=== PATIENT | male | born 1995 | race Caucasian/White ===

== ENCOUNTER → 2023-05-29 | Outpatient (CLI) | payer OTHER, SELFPAY ==
[2023-05-29 16:51] LABS: Absolute Lymphocyte Count 1.27 X10^3/uL (0.83-4.51); Absolute Neutrophil Count 3.3 X10^3/uL (2.0-7.7); Basophil# 0.04 X10^3/uL; Basophil% 0.7 % (0-1); Eosinophil# 0.08 X10^3/uL; Eosinophils% 1.5 % (0-5); Hematocrit 46.3 % (40-54); Hemoglobin 15.3 g/dL (13.0-16.5); Lymphocyte # 1.27 X10^3/ul (0.83-4.51); Lymphocyte % 23.4 % (19-41); Mean Corpuscular Hgb 28.9 pg (27.0-32.0); Mean Corpuscular Volume 87.5 fL (80-94); Monocyte# 0.67 X10^3/uL; Monocyte% 12.4 % (0-10); NRBC Flagged by Analyzer 0 % (0-5); Neutrophil # 3.34 X10^3/uL (2.7-7.7); Neutrophil % 61.6 % (47-70); Platelet Count 209 K/mm3 (150-450); RBC Distribution Width CV 12.4 % (11.6-14.6); RBC Distribution Width SD 39.8 fl (35.1-43.9); Red Blood Count 5.29 M/mm3 (4.6-6.2); White Blood Count 5.4 K/mm3 (4.4-11.0)
[2023-05-29 17:12] LABS: Vitamin B12 436 pg/mL (211-911); Vitamin D,25 Hydroxy 44.3 ng/mL
[2023-05-29 17:20] LABS: ALB/GLOB Ratio 1.2 RATIO (0.9-2.4); AST(SGOT) 37 U/L (15-37); Alanine Aminotransfer ALT/SGPT 58 U/L (16-61); Albumin, Serum 3.8 g/dL (3.2-5.0); Alkaline Phosphatase 57 U/L (45-117); Anion Gap 5 (5-15); BUN 8 mg/dL (7-18); BUN/Creat Ratio 8.2 RATIO (10-20); Calcium,Total 9.2 mg/dL (8.5-10.1); Chloride 108 mmol/L (98-107); Creatinine, Serum 0.98 mg/dL (0.70-1.30); EST Glomerular Filtration Rate 99 mL/min (>60); Est Glom Filt Rate - Afr Amer 120 mL/min (>60); Globulin 3.3 g/dL (2.2-4.2); Glucose 92 mg/dL (74-106); Potassium 4.1 mmol/L (3.5-5.1); Protein, Total 7.1 g/dL (6.4-8.2); Sodium Level 142 mmol/L (136-145); T4 Free Direct 1.26 ng/dL (0.76-1.46)
== END | disposition home or self-care (01) ==
LOC: BIMLAB 15:14
PROVIDERS: PCP Internal Medicine; Referring Provider Internal Medicine; Visit Provider Internal Medicine
DX: F41.9 Anxiety disorder, unspecified (principal); F32.A Depression, unspecified
CPT/HCPCS: 36415; 80053; 82306; 82607; 84439; 84443; 85025

== ENCOUNTER → 2024-04-29 | Outpatient (CLI) | payer OTHER, SELFPAY ==
[2024-04-29 12:02] LABS: Absolute Lymphocyte Count 1.58 X10^3/uL (0.83-4.51); Absolute Neutrophil Count 3.3 X10^3/uL (2.0-7.7); Basophil# 0.03 X10^3/uL; Basophil% 0.5 % (0-1); Eosinophil# 0.09 X10^3/uL; Eosinophils% 1.6 % (0-5); Hematocrit 46.4 % (40-54); Hemoglobin 15.3 g/dL (13.0-16.5); Lymphocyte # 1.58 X10^3/ul (0.83-4.51); Lymphocyte % 28.5 % (19-41); Mean Corpuscular Hgb 29.3 pg (27.0-32.0); Mean Corpuscular Volume 88.7 fL (80-94); Mean Platelet Vol. 10.8 fl (6.2-12.0); NRBC Flagged by Analyzer 0 % (0-5); Neutrophil # 3.33 X10^3/uL (2.7-7.7); Neutrophil % 60.2 % (47-70); Platelet Count 217 K/mm3 (150-450); RBC Distribution Width CV 12.2 % (11.6-14.6); Red Blood Count 5.23 M/mm3 (4.6-6.2); White Blood Count 5.5 K/mm3 (4.4-11.0)
[2024-04-29 12:35] LABS: ALB/GLOB Ratio 1.4 RATIO (0.9-2.4); AST(SGOT) 32 U/L (15-37); Alanine Aminotransfer ALT/SGPT 47 U/L (16-61); Albumin, Serum 4.2 g/dL (3.2-5.0); Alkaline Phosphatase 49 U/L (45-117); Anion Gap 5 (5-15); BUN 15 mg/dL (7-18); BUN/Creat Ratio 15.3 RATIO (10-20); Calcium,Total 9.8 mg/dL (8.5-10.1); Chloride 106 mmol/L (98-107); Cholesterol 150 mg/dL (200); Creatinine, Serum 0.98 mg/dL (0.70-1.30); EST Glomerular Filtration Rate 98 mL/min (>60); Est Glom Filt Rate - Afr Amer 118 mL/min (>60); Globulin 3.1 g/dL (2.2-4.2); Glucose 91 mg/dL (74-106); High Density Lipoprotein 50 mg/dL; Potassium 4.6 mmol/L (3.5-5.1); Protein, Total 7.3 g/dL (6.4-8.2); Sodium Level 139 mmol/L (136-145); Triglycerides 81 mg/dL; Very Low Density Lipoprotein 16 mg/dL (5-40)
== END | disposition home or self-care (01) ==
LOC: BIMLAB 10:21
PROVIDERS: PCP Internal Medicine; Referring Provider Internal Medicine; Visit Provider Internal Medicine
DX: Z00.00 Encounter for general adult medical examination without abnormal findings (principal)
CPT/HCPCS: 36415; 80053; 80061; 85025

== ENCOUNTER 2024-05-09 09:47 | Inpatient (IN) | payer OTHER, SELFPAY ==
[2024-05-09] VITALS (7 sets, daily range): BP systolic 128–170; BP diastolic 57–80; PULSE 52–81; RESP 14–18; TEMP 36.2–36.8; O2SAT 97–100; BMI 28.6; BMI 28.9
--- NOTE | 2024-05-09 10:27 | CT_ITS ---
STUDY: CT BRAIN WITHOUT CONTRAST REASON FOR EXAM: Male, 28 years old. Headache, fever, vomiting; zoster opthalmicus RADIATION DOSAGE (If Supplied By Facility): CTDIvol = ( 44.99 ) mGy, DLP = ( 812.98 ) mGycm TECHNIQUE: Transaxial CT imaging of the brain was performed without administration of intravenous contrast material. Individualized dose optimization techniques were used for this CT. COMPARISON: No relevant priors. FINDINGS: Normal soft tissue structures. Normal calvarium. Normal size ventricles and extra-axial spaces for the patient''s age. Normal white matter tracts of the cerebral hemispheres. Normal basal ganglia and thalami. Normal brainstem. Normal cerebellum. There is no intracranial hemorrhage. There are no findings of an acute ischemic infarction. Normal visualized paranasal sinuses. CT/Brain/Head without Contrast IMPRESSION: Normal unenhanced CT scan of the brain. Electronically Signed: Demond Valera MD at 13:01 EDT ,
--- NOTE | 2024-05-09 10:32 | EDS_ITS ---
HPI History of Present Illness Chief Complaint: Nausea/Vomiting Informant: patient and parent (x2) Narrative Narrative: 28-year-old male started having pain in the left face 1 week ago, he went to urgent care and was prescribed an antibiotic for sinus infection but the next day he started getting a rash in that area, he went to [facility] in [place] and was diagnosed with shingles. Since then it has involved his eye, his upper eyelid, he denies any trouble seeing but he does have a sensation that there is some discomfort in his eye itself, and discomfort behind his eye, he is having some congestion, and yesterday started having fevers and chills. He has been n auseated the entire time, vomiting, and despite being on medication for that since the rash started, Reglan, he continues to have this. He denies any neck stiffness, confusion, peripheral neurologic symptoms, diplopia. [facility] Medical History Preventative health care Dermatitis Diarrhea Encounter to establish care Anxiety and depression H/O scarlet fever H/O staphylococcal infection Home Medications ?Medication ?Instructions ?Recorded ?Last Taken ?Type escitalopram oxalate 10 mg tablet 10 mg PO DAILY #90 tabs 04/29/24 Unknown Rx (Lexapro) Allergy/AdvReac Type Severity Reaction Status Date / Time amoxicillin Allergy Rash Verified 05/09/24 09:48 sulfamethoxazole (From Allergy Unknown Verified 05/09/24 09:48 Bactrim) trimethoprim (From Bactrim) Allergy Unknown Verified 05/09/24 09:48 Social History Smoking Status: Never smoker alcohol intake: current alcohol intake frequency: a few times a month Alcohol type: hard liquor details: occassionally substance use type: does not use what type of physical activity do you participate in: weight training frequency: 3-4 times per week ROS ROS ED Constitutional Constitutional ED: Reports chills, fever(s) and subjective Eyes Eyes: Reports other Details: Left eye discomfort see HPI ; Denies change in vision or diplopia ENT ENT ED: Reports nasal discharge, rhinorrhea and other Details: Left facial pain and rash see HPI. No ear involvement at this time. ; Denies sore throat Cardiovascular Cardiovascular: Denies chest pain or palpitations Respiratory/Chest Respiratory/Chest: Denies cough or dyspnea Gastrointestinal Gastrointestinal: Reports nausea and vomiting; Denies abdominal pain or diarrhea Genitourinary Genitourinary ED: Denies dysuria or hematuria Musculoskeletal Musculoskeletal: Denies back pain or neck pain Integumentary Reports rash; Denies abscess Neurologic Neurologic: Reports headache(s); Denies paresthesias or weakness Psychiatric Psychiatric: Denies anxiety or suicidal thoughts EXAM Physical Exam Const Vital Signs: 05/09/24 09:48 05/09/24 11:48 Temperature 98 F Temperature Source Temporal Pulse Rate 52 L 81 Respiratory Rate 14 14 Blood Pressure 151/79 H 170/80 H Blood Pressure Mean 103 110 Pulse Ox 99 97 Oxygen Delivery Method Room Air Room Air Positive well nourished and well developed General Appearance ED: well developed and NAD HEENT Reports moist mucous membranes HEENT Narrative: Tender raised erythematous rash without vesicles, bullae, petechiae left upper face and scalp involving the left upper eyelid but not the rest of the periorbital area, it cuts off sharply at the midline it does not cross, and there is no external ear involvement. The EAC and TM are normal. No mastoid tenderness or involvement. normocephalic and atraumatic Eyes PERRL and EOMs intact bilaterally Eyes Narrative: There is scleral/conjunctival injection at the temporal aspect of the left eye, but grossly the eye is otherwise normal. There is no discharge. There is no other thymus or proptosis. Neck full ROM, no lymphadenopathy and supple Neck Narrative: Full range of motion without difficulty no meningismus Resp normal respiratory effort and clear to auscultation bilaterally Cardio regular rate, regular rhythm and no murmurs Back/Spine General Back: other FROM Extremity normal to inspection General Extremety ED: Negative for edema, pulses abnormal or tenderness General Extremity: Negative for edema or pulses abnormal Neuro oriented x3, CN's II-XII intact bilaterally and no sensory deficits noted Sensorium / Orientation: awake and alert Motor Exam: strength 5/5 throughout Psych mental status grossly normal Skin no wounds Skin Narrative: Facial rash see above nothing that appears fluid-filled. MDM MDM MDM Narrative Medical decision making narrative: Performed ophthalmologic slit-lamp exam left eye. With plain light there was a small piece of fuzz on the cornea that I wiped off with his lid, there is no dye uptake, and there is no dye uptake anywhere else or dendritic patterns in his eye. Tetracaine helped a little with his discomfort. Negative Lesia sign. Benign cornea. In order to rule out coexisting sinus involvement including sphenoid sinus, associated infection/abscess, or other acute inflammatory process, CT of the head was obtained, which includes the sinuses. I reviewed the images as well as the report, it is negative for any acute, and I agree with the report. As the patient and family are, I am concerned about the fact that he this appears to be straightforward zoster ophthalmicus, however his systemic symptoms are not classic for this especially without corneal involvement at this time. He also states that when he was at the hospital and diagnosed with this, they did a corneal stain and said that it looked normal at that time. He is not examining like meningitis or encephalopathy/encephalitis, but I talked to the patient and family and considering a lumbar puncture, and also discussed this with infectious disease. Dr. Bowles actually recommends not doing the LP, advising that the benefits do not outweigh the risks if we admit him with IV acyclovir 10 mg/kg every 8 hours, which is what he is recommended and he will consult. Lab Data Attestation: I reviewed the patient's lab results. Labs: Laboratory Results - last 24 hr 05/09/24 10:40 WBC 4.5 RBC 5.23 Hgb 15.5 Hct 44.6 MCV 85.3 MCH 29.6 MCHC 34.8 RDW Std Deviation 37.6 RDW Coeff of Chandni 12.1 Plt Count 156 MPV 9.7 Immature Gran % (Auto) 0.200 Neut % (Auto) 55.9 Lymph % (Auto) 21.7 [place] % (Auto) 20.8 H Eos % (Auto) 0.7 Baso % (Auto) 0.7 Absolute Neuts (auto) 2.5 Absolute Lymphs (auto) 0.98 Nucleated RBC % 0 Sodium 141 Potassium 4.0 Chloride 110 H Carbon Dioxide 25.0 Anion Gap 6 BUN 8 Creatinine 1.26 Estim Creat Clear Calc 103.62 Est GFR (MDRD) Af Amer 88 Est GFR (MDRD) Non-Af 73 BUN/Creatinine Ratio 6.3 L Glucose 93 Calcium 9.5 Management Discussion w/another healthcare provider: Hospitalist and Bag Loader (Infectious donald Bowles) Discharge Plan Triage Chief Complaint: Nausea/Vomiting ED Provider: Stanislav Martin Dx/Rx/DC Orders Clinical Impression: Herpes zoster ophthalmicus of left eye, Vomiting, Subjective fever Prescriptions: No Action escitalopram oxalate [Lexapro] 10 mg tablet 10 mg PO DAILY Qty: 90 0RF Primary Care Provider: Daiys Mendez Referrals: Daisy Mendez MD [Primary Care Provider] - Print Language: French Disposition Disposition: Acute Care [facility]
[2024-05-09 10:46] LABS: Absolute Lymphocyte Count 0.98 X10^3/uL (0.83-4.51); Absolute Neutrophil Count 2.5 X10^3/uL (2.0-7.7); Basophil# 0.03 X10^3/uL; Basophil% 0.7 % (0-1); Eosinophil# 0.03 X10^3/uL; Eosinophils% 0.7 % (0-5); Hematocrit 44.6 % (40-54); Hemoglobin 15.5 g/dL (13.0-16.5); Lymphocyte # 0.98 X10^3/ul (0.83-4.51); Lymphocyte % 21.7 % (19-41); Mean Corp Hgb Conc 34.8 g/dL (32-36); Mean Corpuscular Hgb 29.6 pg (27.0-32.0); Mean Corpuscular Volume 85.3 fL (80-94); Mean Platelet Vol. 9.7 fl (6.2-12.0); Monocyte# 0.94 X10^3/uL; Monocyte% 20.8 % (0-10); NRBC Flagged by Analyzer 0 % (0-5); Neutrophil # 2.52 X10^3/uL (2.7-7.7); Neutrophil % 55.9 % (47-70); Platelet Count 156 K/mm3 (150-450); RBC Distribution Width CV 12.1 % (11.6-14.6); RBC Distribution Width SD 37.6 fl (35.1-43.9); Red Blood Count 5.23 M/mm3 (4.6-6.2); White Blood Count 4.5 K/mm3 (4.4-11.0)
[2024-05-09] MEDS: Fluorescein 1 MG STRIP 1 STRIP LEFT EYE (10:50)
[2024-05-09] MEDS: Tetracaine 0.5% Ophthalmic Bottle 3 DRP LEFT EYE (10:51)
[2024-05-09] MEDS: Ondansetron 4 MG/2 ML Vial IV ×2 (10:52→17:57)
[2024-05-09] MEDS: 0.9% Normal Saline (1000mL) 1,000 ML 999 ML IV (10:52)
[2024-05-09 11:00] LABS: Anion Gap 6 (5-15); BUN 8 mg/dL (7-18); BUN/Creat Ratio 6.3 RATIO (10-20); Calcium,Total 9.5 mg/dL (8.5-10.1); Chloride 110 mmol/L (98-107); Creatinine, Serum 1.26 mg/dL (0.70-1.30); EST Glomerular Filtration Rate 73 mL/min (>60); Est Glom Filt Rate - Afr Amer 88 mL/min (>60); Estimated Creatinine Clearance 103.62 ml/min; Glucose 93 mg/dL (74-106); Sodium Level 141 mmol/L (136-145)
--- NOTE | 2024-05-09 12:15 | PCM.HP.STD ---
HPI - General General Date of Admission: 05/09/24 Date of Service: 05/09/24 HPI Narrative LEE MCDONALD, is a 28 M who presents with rash on the forehead. Patient symptoms started 5 days prior to his admission. He did experience what he described as sinus pressure. Was seen at an urgent care center prescribed antibiotics for possible sinusitis. He noticed a rash on the left frontal part of his face subsequently was seen at [facility] diagnosed with shingles prescribed acyclovir. Patient presented to the emergency department after developing intermittent chills. He also did complain of intractable nausea and vomiting. Was seen and evaluated in the emergency department patient did not exhibit any meningism. A slit eye examination did not reveal any dendritic ulcer. The infectious disease specialist on-call recommended admission for initiation of IV acyclovir [facility] Medical History Preventative health care Dermatitis Diarrhea Encounter to establish care Anxiety and depression H/O scarlet fever H/O staphylococcal infection Home Medications ?Medication ?Instructions ?Recorded ?Last Taken ?Type escitalopram oxalate 10 mg tablet 10 mg PO DAILY #90 tabs 04/29/24 05/06/24 Rx (Lexapro) metoclopramide HCl 10 mg tablet 10 mg PO Q6H PRN nausea and 05/09/24 Unknown History vomiting naproxen 500 mg tablet 500 mg PO BID PRN pain 05/09/24 05/09/24 History valacyclovir 1 gram tablet 1,000 mg PO TID 05/09/24 05/09/24 History Allergy/AdvReac Type Severity Reaction Status Date / Time amoxicillin Allergy Rash Verified 05/09/24 09:48 sulfamethoxazole (From Allergy Unknown Verified 05/09/24 09:48 Bactrim) trimethoprim (From Bactrim) Allergy Unknown Verified 05/09/24 09:48 Social History Smoking Status: Never smoker alcohol intake: current alcohol intake frequency: a few times a month Alcohol type: hard liquor details: occassionally substance use type: does not use what type of physical activity do you participate in: weight training frequency: 3-4 times per week ROS ROS Narrative GENERAL: Subjective fever and chills HEENT: headache, sinus congestion, RESPIRATORY: denies cough, sputum production, CARDIAC: denies chest pain, palpitations, orthopnea, PND GASTROINTESTINAL: nausea, vomiting, GENITOURINARY: denies dysuria, urgency, frequency, EXTREMITY: denies swelling MUSCULOSKELETAL: denies current joint pain or tenderness NEUROLOGIC: denies focal numbness, weakness, tingling HEMATOLOGIC: denies easy bruising and/or hemorrhage INTEGUMENT: denies rashes PSYCHIATRIC: denies suicidal or homicidal ideation Vital Signs Vital Signs Vital Signs: 05/09/24 09:48 05/09/24 11:48 Temperature 98 F Temperature Source Temporal Pulse Rate 52 L 81 Respiratory Rate 14 14 Blood Pressure 151/79 H 170/80 H Blood Pressure Mean 103 110 Pulse Ox 99 97 Oxygen Delivery Method Room Air Room Air Weight Weight: 93.2 kg Body Mass Index (BMI) 28.6 Physical Exam Narrative GENERAL: cooperative HEENT: An area of maculopapular erythematous rash involving the left frontal involving the left upper eye EYES; Anicteric, Normal Conjunctiva NECK; supple, normal thyroid, RESPIRATORY: Diminished to auscultation CARDIOVASCULAR: Regular S1 S2, GI: soft, normoactive bowel sounds, : No Renal angle tenderness; EXTREMITIES: No edema, no clubbing, MUSCULOSKELETAL: no muscle wasting NEURO: Awake; no lateralizing signs. SKIN: As discussed above PSYCH; Flat affect Results Lab / Micro Data 05/09/24 10:40 05/09/24 10:40 Labs: Laboratory Results - last 24 hr 05/09/24 10:40: WBC 4.5, RBC 5.23, Hgb 15.5, Hct 44.6, MCV 85.3, MCH 29.6, MCHC 34.8, RDW Std Deviation 37.6, RDW Coeff of Chandni 12.1, Plt Count 156, MPV 9.7, Immature Gran % (Auto) 0.200, Neut % (Auto) 55.9, Lymph % (Auto) 21.7, [place] % (Auto) 20.8 H, Eos % (Auto) 0.7, Baso % (Auto) 0.7, Absolute Neuts (auto) 2.5, Absolute Lymphs (auto) 0.98, Nucleated RBC % 0, Sodium 141, Potassium 4.0, Chloride 110 H, Carbon Dioxide 25.0, Anion Gap 6, BUN 8, Creatinine 1.26, Estim Creat Clear Calc 103.62, Est GFR (MDRD) Af Amer 88, Est GFR (MDRD) Non-Af 73, BUN/Creatinine Ratio 6.3 L, Glucose 93, Calcium 9.5 Assessment & Plan Assessment/Plan (1) Herpes zoster ophthalmicus of left eye: PLAN: Plan Patient is a 28-year-old gentleman presenting with a facial rash 1. Herpes zoster ophthalmicUS ? Patient has been admitted to regular nursing floor started on parenteral acyclovir per recommendations from infectious disease. Slight eye exam in the emergency department did not reveal any dendritic ulcers. As part of patient's evaluation ordered an HIV acid 2. Anxiety disorder ? Patient is on SSRI continue 3. Elevated blood pressure ? Patient is not a known hypertensive was placed on hydralazine as needed for systolic blood pressure greater than 160 4. Intractable nausea vomiting ? Treated symptomatically 5. Dehydration ? Secondary to patient intractable nausea vomiting patient be resuscitated with IV fluids with monitoring of his vitals 6. DVT prophylaxis ? Low risk with encouraging ambulation Charges/Coding Visit Charges Inpatient E&M: 80391 Init Hosp L2
[2024-05-09] MEDS: WATER IV ×2 (12:29→21:05)
[2024-05-09] MEDS: ACYCLOVIR IV ×2 (12:29→21:05)
[2024-05-09] MEDS: DEXTROSE 5% IV ×2 (12:29→21:05)
[2024-05-09 13:28] LABS: HIV - WCH Non-Reactive (Nonreactive)
--- NOTE | 2024-05-09 14:57 | CON.PCM.ID_ITS ---
Assessment & Plan Assessment/Plan (1) Herpes zoster ophthalmicus of left eye: PLAN: Will treat with acyclovir 10 mg/kg IV every 8 hours and follow clinically. Will repeat a BMP in the morning. HPI Consult Data Date of Consult: 05/09/24 HPI Narrative Reason for Consultation: Shingles involving the cranial nerves HPI Narrative: LEE MCDONALD, is a 28 M who presents no significant past medical history who presents with pain in his left side of his head and left retroorbital pain late last week and then rash that started on Monday in his left forehead and scalp. Also complaining of nausea vomiting. Low-grade fevers. No documented fever in the emergency department. HIV serology done on this admission negative. [facility] Medical History Preventative health care Dermatitis Diarrhea Encounter to establish care Anxiety and depression H/O scarlet fever H/O staphylococcal infection Home Medications ?Medication ?Instructions ?Recorded ?Last Taken ?Type escitalopram oxalate 10 mg tablet 10 mg PO DAILY #90 tabs 04/29/24 05/06/24 Rx (Lexapro) metoclopramide HCl 10 mg tablet 10 mg PO Q6H PRN nausea and 05/09/24 Unknown History vomiting naproxen 500 mg tablet 500 mg PO BID PRN pain 05/09/24 05/09/24 History valacyclovir 1 gram tablet 1,000 mg PO TID 05/09/24 05/09/24 History Allergy/AdvReac Type Severity Reaction Status Date / Time amoxicillin Allergy Rash Verified 05/09/24 09:48 sulfamethoxazole (From Allergy Unknown Verified 05/09/24 09:48 Bactrim) trimethoprim (From Bactrim) Allergy Unknown Verified 05/09/24 09:48 Social History Smoking Status: Never smoker alcohol intake: current alcohol intake frequency: a few times a month Alcohol type: hard liquor details: occassionally substance use type: does not use what type of physical activity do you participate in: weight training frequency: 3-4 times per week ROS ROS Narrative As stated in history of present illness others negative Physical Exam Narrative Alert responsive does not appear toxic left scalp and left forehead with vesicular lesions. Mild erythema on the upper left eyelid. Extraocular muscles are intact. Patient is neurologically intact. Neck is supple lungs are clear heart exam S1-S2 Lab / Micro Data 05/09/24 10:40 05/09/24 10:40 Labs: Laboratory Results - last 24 hr 05/09/24 10:40: WBC 4.5, RBC 5.23, Hgb 15.5, Hct 44.6, MCV 85.3, MCH 29.6, MCHC 34.8, RDW Std Deviation 37.6, RDW Coeff of Chandni 12.1, Plt Count 156, MPV 9.7, Immature Gran % (Auto) 0.200, Neut % (Auto) 55.9, Lymph % (Auto) 21.7, [place] % (Auto) 20.8 H, Eos % (Auto) 0.7, Baso % (Auto) 0.7, Absolute Neuts (auto) 2.5, Absolute Lymphs (auto) 0.98, Nucleated RBC % 0, Sodium 141, Potassium 4.0, C hloride 110 H, Carbon Dioxide 25.0, Anion Gap 6, BUN 8, Creatinine 1.26, Estim Creat Clear Calc 103.62, Est GFR (MDRD) Af Amer 88, Est GFR (MDRD) Non-Af 73, B UN/Creatinine Ratio 6.3 L, Glucose 93, Calcium 9.5 05/09/24 12:30: HIV 1&2 Antibody Non-Reactive Imaging Radiology Impression Brain CT 05/09/24 10:27 IMPRESSION: Normal unenhanced CT scan of the brain. Electronically Signed: Demond Valera MD at 13:01 EDT ,
[2024-05-09] MEDS: 0.9% Saline Lock 10 ML Syringe IV ×2 (17:57→20:24)
[2024-05-09] MEDS: Acetaminophen 325 MG Tablet 650 MG PO (20:28)
[2024-05-09] MEDS: proMETHazine 25 MG/ML Syringe IM (21:03)
[2024-05-10 03:00] VITALS: BP 126/83; PULSE 89; RESP 18; TEMP 36.3; O2SAT 99
[2024-05-10] MEDS: WATER IV ×3 (05:16→21:11)
[2024-05-10] MEDS: DEXTROSE 5% IV ×3 (05:16→21:11)
[2024-05-10] MEDS: ACYCLOVIR IV ×3 (05:16→21:11)
[2024-05-10 07:12] LABS: Absolute Lymphocyte Count 1.34 X10^3/uL (0.83-4.51); Absolute Neutrophil Count 2.8 X10^3/uL (2.0-7.7); Basophil# 0.05 X10^3/uL; Eosinophil# 0.05 X10^3/uL; Hematocrit 41.9 % (40-54); Hemoglobin 14.1 g/dL (13.0-16.5); Lymphocyte # 1.34 X10^3/ul (0.83-4.51); Mean Corp Hgb Conc 33.7 g/dL (32-36); Mean Corpuscular Hgb 28.9 pg (27.0-32.0); Mean Corpuscular Volume 85.9 fL (80-94); Mean Platelet Vol. 10.5 fl (6.2-12.0); Monocyte# 0.73 X10^3/uL; Monocyte% 14.7 % (0-10); NRBC Flagged by Analyzer 0 % (0-5); Neutrophil # 2.78 X10^3/uL (2.7-7.7); Neutrophil % 56.1 % (47-70); Platelet Count 143 K/mm3 (150-450); RBC Distribution Width CV 12.3 % (11.6-14.6); RBC Distribution Width SD 38.6 fl (35.1-43.9); Red Blood Count 4.88 M/mm3 (4.6-6.2)
--- NOTE | 2024-05-10 07:21 | PN.HOSP_ITS ---
Reason for Visit Reason for Visit: Diagnoses Zoster ocular disease, unspecified (05/09/24) Subjective Subjective Patient did complains of some visual disturbance but the blurriness has improved this a.m. Objective Data Objective Data Vital Signs: Vital Signs Temp Pulse Resp BP Pulse Ox O2 Del Method 97.4 F L 89 18 126/83 H 99 Room Air 05/10/24 03:00 05/10/24 03:00 05/10/24 03:00 05/10/24 03:00 05/10/24 03:00 05/10/24 03:00 Oxygen Delivery Method Room Air Weight: 94 kg Body Mass Index (BMI) 28.9 Intake & Output: Intake and Output for Last 24 Hours 05/08/24 05/09/24 05/10/24 23:59 23:59 23:59 Intake Total 2235.0 / 2235.0 400 / 400 Balance 2235.0 / 2235.0 400 / 400 Lab / Micro Data 05/10/24 06:47 05/10/24 06:47 Labs: Laboratory Results - last 24 hr 05/09/24 10:40: WBC 4.5, RBC 5.23, Hgb 15.5, Hct 44.6, MCV 85.3, MCH 29.6, MCHC 34.8, RDW Std Deviation 37.6, RDW Coeff of Chandni 12.1, Plt Count 156, MPV 9.7, Immature Gran % (Auto) 0.200, Neut % (Auto) 55.9, Lymph % (Auto) 21.7, [place] % (Auto) 20.8 H, Eos % (Auto) 0.7, Baso % (Auto) 0.7, Absolute Neuts (auto) 2.5, Absolute Lymphs (auto) 0.98, Nucleated RBC % 0, Sodium 141, Potassium 4.0, C hloride 110 H, Carbon Dioxide 25.0, Anion Gap 6, BUN 8, Creatinine 1.26, Estim Creat Clear Calc 103.62, Est GFR (MDRD) Af Amer 88, Est GFR (MDRD) Non-Af 73, B UN/Creatinine Ratio 6.3 L, Glucose 93, Calcium 9.5 05/09/24 12:30: HIV 1&2 Antibody Non-Reactive 05/10/24 06:47: WBC 5.0, RBC 4.88, Hgb 14.1, Hct 41.9, MCV 85.9, MCH 28.9, MCHC 33.7, RDW Std Deviation 38.6, RDW Coeff of Chandni 12.3, Plt Count 143 L, MPV 10.5, Immature Gran % (Auto) 0.200, Neut % (Auto) 56.1, Lymph % (Auto) 27.0, [place] % (Auto) 14.7 H, Eos % (Auto) 1.0, Baso % (Auto) 1.0, Absolute Neuts (auto) 2.8, Absolute Lymphs (auto) 1.34, Nucleated RBC % 0 Radiography Diagnostic Testing: Radiology Impression Brain CT 05/09/24 10:27 IMPRESSION: Normal unenhanced CT scan of the brain. Electronically Signed: Demond Valera MD at 13:01 EDT , Physical Exam Narrative GENERAL: cooperative HEENT: An area of maculopapular erythematous rash involving the left frontal involving the left upper eye EYES; Anicteric, Normal Conjunctiva NECK; supple, normal thyroid, RESPIRATORY: Diminished to auscultation CARDIOVASCULAR: Regular S1 S2, GI: soft, normoactive bowel sounds, : No Renal angle tenderness; EXTREMITIES: No edema, no clubbing, MUSCULOSKELETAL: no muscle wasting NEURO: Awake; no lateralizing signs. SKIN: As discussed above PSYCH; Flat affect Assessment & Plan Assessment/Plan (1) Herpes zoster ophthalmicus of left eye: PLAN: Plan Patient is a 28-year-old gentleman presenting with a facial rash 1. Herpes zoster ophthalmicus ? Patient has been admitted to regular nursing floor started on parenteral acyclovir per recommendations from infectious disease. Slight eye exam in the emergency department did not reveal any dendritic ulcers. As part of patient's evaluation ordered an HIV assay ? 05/10/2024; HIV assay came back negative. Patient had complained of some visual disturbance which has improved because of this they are 2. Anxiety disorder ? Patient is on SSRI continue 3. Elevated blood pressure ? Patient is not a known hypertensive was placed on hydralazine as needed for systolic blood pressure greater than 160 4. Intractable nausea vomiting ? Treated symptomatically 5. Dehydration ? Secondary to patient intractable nausea vomiting patient be resuscitated with IV fluids with monitoring of his vitals 6. DVT prophylaxis ? Low risk with encouraging ambulation Time spent in the patient's overall evaluation,decision-making process, review of diagnostic data, adjustment of management, discussion with other providers, nursing nursing and ancillary staff involved in patient's care documentation,35 Minutes Charges/Coding Visit Charges Inpatient E&M: 89770 Subs Hosp L2
[2024-05-10 07:41] LABS: Anion Gap 3 (5-15); BUN 7 mg/dL (7-18); Calcium,Total 8.5 mg/dL (8.5-10.1); Chloride 110 mmol/L (98-107); Creatinine, Serum 1.16 mg/dL (0.70-1.30); EST Glomerular Filtration Rate 80 mL/min (>60); Est Glom Filt Rate - Afr Amer 97 mL/min (>60); Estimated Creatinine Clearance 112.99 ml/min; Glucose 95 mg/dL (74-106); Magnesium 2.4 mg/dL (1.6-2.6); Phosphorus 3.3 mg/dL (2.5-4.9); Potassium 3.7 mmol/L (3.5-5.1); Sodium Level 140 mmol/L (136-145)
[2024-05-10 08:37] VITALS: BP 119/79; PULSE 64; RESP 16; TEMP 36.6; O2SAT 100
[2024-05-10] MEDS: Escitalopram Oxalate 10 MG Tablet PO (08:43)
--- NOTE | 2024-05-10 11:03 | CASEMGMT ---
CABRERA NOYOLA Assessment Face to Face with patient for initial transition planning/care coordination assessment. CABRERA NOYOLA introduced self and role at [facility], pt voices understanding. Pt is A&Ox4 and is resting comfortably in bed and is calm. Care providers, pharmacy, and demographics verified. Admitting dx: Herpes Zoster PCP: Andrea Specialists: Denies Preferred [facility]acy: [facility] Insurance: MMO Prescription Benefit: yes LNOK: Trina Junior (Mother) Living Arrangements: Pt lives alone in a 2 story home with a flat entrance ADLs/IADLs: Ind Transportation: Self, Mom, Dad DME: Denies all DME uses or needs HHC/SNF: Denies history or needs Pt?s goal: Home Plan: Home no needs. 6-Click is 24. Pt denies further questions, concerns, or needs and states feeling safe returning home once medically ready. Delores Dixon RN, CM
[2024-05-10] MEDS: Ensure Plus High Protein 120 ML LIQUID PO (11:28)
[2024-05-10] MEDS: Acetaminophen 325 MG Tablet 650 MG PO ×2 (11:29→21:15)
--- NOTE | 2024-05-10 12:55 | PCM.PN.ID ---
ID ID: Route of nutrition/ use of supplements: [] Nutritional Intake: [] IV Site: [] Hayes Catheter: [] Patient overall clinically stable. Had a relatively uneventful night. No fevers. Tolerating parenteral acyclovir well. Pain well-controlled. Alert responsive does not appear toxic. Vesicular lesions on left forehead and scalp with some improvement. Neurological exam nonfocal. Heart exam S1-S2, abdomen soft Assessment & Plan Assessment/Plan (1) Herpes zoster ophthalmicus of left eye: PLAN: Clinically improving on parenteral acyclovir. Most likely will go home next 24 hours, when the patient does go home Valtrex 1 g p.o. 3 times a day for 5 more days will be reasonable
[2024-05-10 14:37] VITALS: BP 135/78; PULSE 62; RESP 18; TEMP 37.1; O2SAT 96
[2024-05-10 21:10] VITALS: BP 134/89; PULSE 55; RESP 16; TEMP 36.5; O2SAT 100
[2024-05-11 06:11] LABS: Absolute Lymphocyte Count 1.76 X10^3/uL (0.83-4.51); Absolute Neutrophil Count 2.7 X10^3/uL (2.0-7.7); Basophil# 0.05 X10^3/uL; Eosinophil# 0.06 X10^3/uL; Eosinophils% 1.2 % (0-5); Hematocrit 42.5 % (40-54); Hemoglobin 14.6 g/dL (13.0-16.5); Lymphocyte # 1.76 X10^3/ul (0.83-4.51); Lymphocyte % 34.6 % (19-41); Mean Corp Hgb Conc 34.4 g/dL (32-36); Mean Corpuscular Hgb 29.4 pg (27.0-32.0); Mean Corpuscular Volume 85.5 fL (80-94); Mean Platelet Vol. 10.3 fl (6.2-12.0); Monocyte# 0.46 X10^3/uL; Monocyte% 9.1 % (0-10); NRBC Flagged by Analyzer 0 % (0-5); Neutrophil # 2.74 X10^3/uL (2.7-7.7); Neutrophil % 53.9 % (47-70); Platelet Count 169 K/mm3 (150-450); RBC Distribution Width CV 12.1 % (11.6-14.6); RBC Distribution Width SD 37.7 fl (35.1-43.9); Red Blood Count 4.97 M/mm3 (4.6-6.2); White Blood Count 5.1 K/mm3 (4.4-11.0)
[2024-05-11 06:22] VITALS: BP 133/71; PULSE 58; RESP 16; TEMP 36.7; O2SAT 100
[2024-05-11] MEDS: WATER IV (06:23)
[2024-05-11] MEDS: DEXTROSE 5% IV (06:23)
[2024-05-11] MEDS: ACYCLOVIR IV (06:23)
[2024-05-11] MEDS: Acetaminophen 325 MG Tablet 650 MG PO (06:27)
[2024-05-11 06:36] LABS: Anion Gap 4 (5-15); BUN 7 mg/dL (7-18); BUN/Creat Ratio 6.9 RATIO (10-20); Calcium,Total 8.8 mg/dL (8.5-10.1); Chloride 109 mmol/L (98-107); Creatinine, Serum 1.02 mg/dL (0.70-1.30); EST Glomerular Filtration Rate 93 mL/min (>60); Est Glom Filt Rate - Afr Amer 113 mL/min (>60); Estimated Creatinine Clearance 126.36 ml/min; Glucose 95 mg/dL (74-106); Potassium 3.7 mmol/L (3.5-5.1); Sodium Level 138 mmol/L (136-145)
[2024-05-11] MEDS: Escitalopram Oxalate 10 MG Tablet PO (07:50)
--- NOTE | 2024-05-11 08:03 | DS.PCM_ITS ---
Providers Date of Admission: 05/09/24 Date of Discharge: 05/11/24 Primary Care Physician: Dr. Daisy Mendez MD Consultations 05/09/24 14:37 Consult: Infectious Disease Routine Consulting Provider: Guy Bowles Reason for Consult: HERPES ZOSTER INFECTION EMERGENT Consult: No MD Notified: Yes Date Notified: 05/09/24 Time Notified: 12:14 Method of Notification: ED Physician Initiated Reason For Visit: HERPES ZOSTER Diagnosis Discharge Diagnosis (1) Herpes zoster ophthalmicus of left eye: Status: Acute Code(s): B02.30 - Zoster ocular disease, unspecified Plan Patient is a 28-year-old gentleman presenting with a facial rash 1. Herpes zoster ophthalmicus ? Patient has been admitted to regular nursing floor started on parenteral acyclovir per recommendations from infectious disease. Slight eye exam in the emergency department did not reveal any dendritic ulcers. As part of patient's evaluation ordered an HIV assay ? 05/10/2024; HIV assay came back negative. Patient had complained of some visual disturbance which has improved -05/11/2024; decision made to discharge patient on Valtrex 1 g p.o. 3 times daily for 5 more days 2. Anxiety disorder ? Patient is on SSRI continue 3. Elevated blood pressure ? Patient is not a known hypertensive was placed on hydralazine as needed for systolic blood pressure greater than 160 4. Intractable nausea vomiting ? Treated symptomatically 5. Dehydration ? Secondary to patient intractable nausea vomiting patient be resuscitated with IV fluids with monitoring of his vitals 6. DVT prophylaxis ? Low risk with encouraging ambulation Time spent in the patient's overall evaluation,decision-making process, review of diagnostic data, adjustment of management, discussion with other providers, nursing nursing and ancillary staff involved in patient's care documentation,35 Minutes Medications at Discharge Home Medications escitalopram oxalate 10 mg tablet (Lexapro) 10 mg PO DAILY #90 tabs 04/29/24 metoclopramide HCl 10 mg tablet 10 mg PO Q6H PRN nausea and vomiting 05/09/24 naproxen 500 mg tablet 500 mg PO BID PRN pain 05/09/24 valacyclovir 1 gram tablet 1,000 mg PO TID 05/09/24 Physical Exam Narrative GENERAL: cooperative HEENT: An area of maculopapular erythematous rash involving the left frontal involving the left upper eye EYES; Anicteric, Normal Conjunctiva NECK; supple, normal thyroid, RESPIRATORY: Diminished to auscultation CARDIOVASCULAR: Regular S1 S2, GI: soft, normoactive bowel sounds, : No Renal angle tenderness; EXTREMITIES: No edema, no clubbing, MUSCULOSKELETAL: no muscle wasting NEURO: Awake; no lateralizing signs. SKIN: As discussed above PSYCH; Flat affect Medical Records Data Medical Nutrition Assessment Dietitian: Malnutrition Criteria Met Start: 05/10/24 10:30 Freq: Status: Active Protocol: Document 05/10/24 10:30 SB (Rec: 05/10/24 10:31 SB [id number]) Nutrition Malnutrition Evidence of Malnutrition Exists Yes Malnutrition (severe): Acute Illness/Injury Evidenced By Suboptimal Energy Intake ( Severe),Weight Loss (Severe) Clinical Problem Acute Disease or Injury Related Malnutrition Etiology severe acute malnutrition related to decreased appetite Signs/Symptoms as evidence by 2.7% weight loss x 10 days and PO intake < 50% of estimated energy needs x >1 week. Status Active Problem Recommendation Dietitian Recommendations/Changes Continue regular diet. Will order 120ml [place] Ensure plus HP TID with medpass to increase calorie and protein intake. Reviewed and approved by: Nneka Hay RD,LD Weight / BMI Weight Weight: 94 kg Body Mass Index (BMI) 28.9 ABG / Lab / Microbiology Data 05/11/24 05:52 05/11/24 05:52 Laboratory: Laboratory Results - last 24 hr 05/11/24 05:52: WBC 5.1, RBC 4.97, Hgb 14.6, Hct 42.5, MCV 85.5, MCH 29.4, MCHC 34.4, RDW Std Deviation 37.7, RDW Coeff of [place] 12.1, Plt Count 169, MPV 10.3, Immature Gran % (Auto) 0.200, Neut % (Auto) 53.9, Lymph % (Auto) 34.6, [place] % (Auto) 9.1, Eos % (Auto) 1.2, Baso % (Auto) 1.0, Absolute Neuts (auto) 2.7, Absolute Lymphs (auto) 1.76, Nucleated RBC % 0, Sodium 138, Potassium 3.7, C hloride 109 H, Carbon Dioxide 25.0, Anion Gap 4 L, BUN 7, Creatinine 1.02, Estim Creat Clear Calc 126.36, Est GFR (MDRD) Af Amer 113, Est GFR (MDRD) Non-Af 93, B UN/Creatinine Ratio 6.9 L, Glucose 95, Calcium 8.8 D/C Instructions Discharge Diet: No restrictions Discharge Activity: Return to Normal Activity Call your doctor if you observe: Fever of 101 or Higher, Shortness of breath, Fainting spells and Chest pain Meaningful Use Info Meaningful Use Meaningful Use Diagnoses (Choose all that apply): None applicable Ischemic Stroke Statin Dosing Therapy Reference: STATIN DOSE THERAPY REFERENCE: * Patients > 75 years receive moderate or high dose statin therapy. * Patients 75 years or YOUNGER should receive HIGH intensity statin dose unless contraindicated. You will be required to document reason for non-treatment if statin daily dose does not meet guidelines. HIGH DOSE STATIN THERAPY DAILY Atorvastatin > than or = to 40 mg Rosuvastatin > than or = to 20 mg Amlodipine + Atorvastatin > than or = to 2.5/40 mg Ezetimibe + Simvastatin 10/80 mg Simvastatin 80mg Discharge Plan Admission Admit Date/Time: 05/09/24 12:09 Attending Provider: Marshal Ford Primary Care Provider: Daisy Mendez Consulting Providers: Guy Bowles Discharge Orders/Prescriptions Prescriptions: Continued escitalopram oxalate [Lexapro] 10 mg tablet 10 mg PO DAILY Qty: 90 0RF metoclopramide HCl 10 mg tablet 10 mg PO Q6H PRN (Reason: nausea and vomiting) valacyclovir 1 gram tablet 1,000 mg PO TID naproxen 500 mg tablet 500 mg PO BID PRN (Reason: pain) Referrals / Follow Up: Daisy Mendez MD [Primary Care Provider] - Within 1 Week Disposition Disposition (needs filled in before D/C Order can be placed): Home, Self Care Charges/Coding Visit Charges Inpatient E&M: 77376 Disch Hosp >30min
== END 2024-05-11 10:22 | disposition home or self-care (01) | DRG 124 ==
LOC: ED 12:02 → MS3 12:54
PROVIDERS: Admitting Provider Internal Medicine; Emergency Provider Emergency Medicine; PCP Internal Medicine; Visit Provider Internal Medicine
DX: B02.39 Other herpes zoster eye disease (principal); E43 Unspecified severe protein-calorie malnutrition; E86.0 Dehydration; F41.9 Anxiety disorder, unspecified; R11.2 Nausea with vomiting, unspecified; R03.0 Elevated blood-pressure reading, without diagnosis of hypertension; Z68.28 Body mass index [BMI] 28.0-28.9, adult; Z79.899 Other long term (current) drug therapy
CPT/HCPCS: 36415; 70450; 80048; 83735; 84100; 85025; 86703; 97802; 99284; A4216; J2405